=== PATIENT | male | born 1965 | race African-American/Black ===

== ENCOUNTER 2017-05-19 13:08 | Emergency (ER) | payer OTHER ==
[~2017-05-19] VITALS: Ht 167.6 cm; Wt 65.8 kg
[~2017-05-19 13:08] MED LIST: PRILOSEC20 MG PO; ZANTAC150 MG PO
== END 2017-05-19 14:38 | disposition home or self-care (01) ==
LOC: CFTX 13:08 → CED 13:08 → CFTX 14:25
DX: S61.012A Laceration without foreign body of left thumb without damage to nail, initial encounter (principal); I10 Essential (primary) hypertension; F17.200 Nicotine dependence, unspecified, uncomplicated; Z88.2 Allergy status to sulfonamides; Z88.8 Allergy status to other drugs, medicaments and biological substances; W45.8XXA Other foreign body or object entering through skin, initial encounter; Y93.89 Activity, other specified; Y92.69 Other specified industrial and construction area as the place of occurrence of the external cause; Y99.0 Civilian activity done for income or pay
CPT/HCPCS: 12001; 99283

== ENCOUNTER 2017-05-19 17:07 | Emergency (ER) | payer OTHER ==
[~2017-05-19] VITALS: Ht 167.6 cm; Wt 65.8 kg
== END 2017-05-19 18:22 | disposition home or self-care (01) ==
LOC: CED 17:07 → CFTX 17:07 → CED 17:38 → CFTX 17:38
DX: S61.012A Laceration without foreign body of left thumb without damage to nail, initial encounter (principal); I10 Essential (primary) hypertension; F17.200 Nicotine dependence, unspecified, uncomplicated; Z88.2 Allergy status to sulfonamides; Z88.8 Allergy status to other drugs, medicaments and biological substances; X58.XXXA Exposure to other specified factors, initial encounter; Y92.69 Other specified industrial and construction area as the place of occurrence of the external cause; Y93.89 Activity, other specified; Y99.0 Civilian activity done for income or pay
CPT/HCPCS: 12001; 99283